=== PATIENT | male | born 1950 | race Caucasian/White ===

== ENCOUNTER → 2018-05-18 | Day surgery (SDC) | payer OTHER, MEDICARE ==
--- NOTE | 2018-05-17 13:09 | Pre Op History & Physical ---
CHIEF COMPLAINT: Left sudden sensorineural hearing loss. HISTORY OF PRESENT ILLNESS: This 67-year-old male has decreased hearing in the left ear for a number of years. The patient has increased tinnitus. The patient has vertigo that lasts up to a week. He denies any aural fullness. The patient had an audiogram which was done, showed that the patient has severe to profound sensorineural hearing loss in the left ear with speech discrimination of 68% on the left and then speech discrimination of 80% on the right with a high-frequency severe to profound sensorineural hearing loss on the right ear with moderate hearing loss in the lower frequency for the right. Patient has no previous surgery to the ear. The hearing loss that the patient experienced on the left side was sudden in onset. He has no otalgia or pain in the ear. REVIEW OF SYSTEMS: Showed no recent cardiovascular, respiratory or GI problem. PAST MEDICAL HISTORY: Patient has no significant medical problem. PAST SURGICAL HISTORY: He has previous cataract surgery. ALLERGIES: THE PATIENT HAS NO KNOWN ALLERGY TO MEDICATION. MEDICATIONS: He is on no regular medication. SOCIAL HISTORY: He is a nonsmoker, nondrinker. FAMILY HISTORY: Noncontributory. PHYSICAL EXAMINATION: VITAL SIGNS: Within normal limits. EAR: Exam showed normal tympanic membranes bilaterally. NOSE: Exam showed hypertrophy of the inferior turbinate. THROAT: Oropharynx and oral cavity showed dentures in the upper jaw. No other abnormality was noted. NECK: Exam showed no lymph node or thyroid palpable. CHEST: Exam showed good air entry bilaterally. CARDIOVASCULAR: Exam showed S1 and S2. No murmur noted. MEMS DEVICE SCIENTIST: Exam showed cranial nerves 2 through 12 were within normal limits. Mr. Ruano had a left sudden sensorineural hearing loss about 2 years ago which has not improved. The suggested treatment is myringotomy and tubes in the left side, possible bilateral myringotomy and tubes and other necessary procedures. This also includes Decadron instillation into the ear on the left side. The complications of procedure include but not limited to bleeding, infection, TM perforation, persistent drainage from the ear, hearing loss, recurrence of the ear infection, persistence of the hearing loss with no improvement and unsteadiness. Alternatives would be continued observation, continued antibiotic therapy, systemic steroid therapy, myringotomy and tubes in the office setting. The patient has elected to undergo the surgical procedure. It should be noted that at the time of dictation the patient had an MRI of the skull base. The report is still pending, which probably would be available with the result in a few hours. Job#: [id number] EV
[~2018-05-18] MED LIST: DEXAMETHASONE PHOS 24 MG/ML 10ML VIAL EACH EAR NR; DEXAMETHASONE SOD PHOS INJ 4 MG/ML VIAL ONE; FENTANYL CITRATE/PF 100MCG/2 ML INJ ONE; GABAPENTIN300 MG PO; LIDOCAINE HCL 2% LOCAL INJ 5 ML SDV VIAL INJ ONE; OFLOXACIN 0.3% (OTIC SOL) 5 ML BTL OT ONE; ONDANSETRON HCL INJ 2 MG/ML VIAL ONE; PROPOFOL IV EMULSION 10 MG/ML 20 ML VIAL ONE; ROCURONIUM BROMIDE 10 MG/ML 5ML VIAL ONE; SEVOFLURANE INHAL SOLN 250 ML PEN BTL ONE
[2018-05-18 12:00] VITALS: BP 124/76
--- NOTE | 2018-05-18 12:39 | Operative Report ---
DATE OF PROCEDURE: May 18, 2018 CHIEF COMPLAINT: Left sudden sensorineural hearing loss. POSTOPERATIVE DIAGNOSIS: Left sudden sensorineural hearing loss. TITLE OF PROCEDURE: Bilateral myringotomy and tubes with Decadron instillation to the left middle ear. ANESTHESIA: Anesthesiology group. INDICATIONS: This 67-year-old male has a sudden onset of hearing loss about 2 years ago in the left side. Patient has some unsteadiness associated with it. He denies any aural fullness. An examination of the ear showed that he has normal tympanic membrane bilaterally with no effusion in the middle ear. An audiogram showed the patient has severe to profound sensorineural hearing loss on the left side with a high-frequency severe to profound sensorineural loss on the right with lower frequency better, in the mild to moderate range, on the right side. It was decided that myringotomy and tubes with Decadron instillation in the ear is worthwhile to see if this would improve the patient's hearing. Patient was given the option. He has chosen to have bilateral myringotomy and tubes at this point. DETAILS OF PROCEDURE: Patient was taken to the operating room and put under general aesthesia, an LMA airway created. The right ear was examined. The ear canal was debrided. Myringotomy was done in the anterior superior quadrant. No effusion was noted in the middle ear cleft. An Driver grommet tube was inserted. Floxin ophthalmic drops were inserted into the middle ear on the right. The left ear was examined, and the ear canal was debrided. A myringotomy was done in the anterior inferior quadrant. No effusion was noted in the middle ear cleft. An Driver grommet tube was inserted. A half a milliliter of Decadron 24 mg per mL was injected in the left middle ear cleft. The patient tolerated the above procedure well with minimal blood loss. He was able to be transferred to the recovery room in stable condition. Job#: [id number] EV
== END | disposition home or self-care (01) ==
LOC: OR 10:05
PROVIDERS: ATTEND Otolaryngology Otolaryngology/Facial Plastic Surgery
DX: H91.23 Sudden idiopathic hearing loss, bilateral (principal); J32.0 Chronic maxillary sinusitis
CPT/HCPCS: 69436; 93005; J1100; J2001; J2405; J2704